=== PATIENT | female | born 1990 | race African-American/Black ===

== ENCOUNTER 2018-06-11 23:40 | Emergency (ER) | payer MEDICAID ==
[~2018-06-11] VITALS: Ht 149.9 cm; Wt 38.6 kg
[2018-06-12 04:45] VITALS: BP 101/65
== END 2018-06-12 05:51 | disposition home or self-care (01) ==
LOC: ED 06-12 05:45
DX: F10.129 Alcohol abuse with intoxication, unspecified (principal)
CPT/HCPCS: 99283